=== PATIENT | female | born 1990 | race Caucasian/White ===

== ENCOUNTER → 2016-06-06 | Outpatient (CLI) | payer OTHER ==
--- NOTE | 2016-06-06 17:27 | DX ---
Left Hand - 3 views Indication: Trauma. Pain. Technique: AP, oblique, and lateral views. Comparison: None Findings: The bones are anatomically aligned. No acute fracture. Joint spaces are well preserved. Mod erate soft tissue swelling overlies the dorsal aspect of the metacarpals. Impression: Soft tissue swelling. No acute fracture.
== END ==
LOC: CIMAGING 15:57
PROVIDERS: ATTEND Family Medicine
DX: M79.642 Pain in left hand (principal)
CPT/HCPCS: 73130-PO